=== PATIENT | male | born 1970 | race Caucasian/White ===

== ENCOUNTER → 2018-05-15 | Outpatient (CLI) | payer MEDICARE ==
--- NOTE | 2018-05-15 11:13 | KCIC ---
EXAMINATION: Magnetic resonance imaging (MRI) of the lumbar spine without contrast 05/15/2018 9:30 AM HISTORY: Lumbar radiculopathy with new onset right leg pain and numbness. TECHNIQUE: Multiplanar multi-weighted MRI of the lumbar spine was performed without intravenous contrast using the standard lumbar spine protocol. Contrast information: None administered. COMPARISON: Lumbar spine radiograph April 28, 2018 FINDINGS: There is minimal anterolisthesis of L5 on S1. There is congenital narrowing of the spinal canal secondary to shortened pedicles. There is a osseous hemangioma involving the posterior superior L2 vertebral body. Schmorl's nodes are identified involving the superior and inferior endplates of L2 and L3. Superior endplate Schmorl's nodes are identified at L4-L5. Modic type II endplate degenerative changes are identified anteriorly with mild anterior marginal osteophytosis at T11-T12 and T12-L1. There are no compression fractures. The conus medullaris terminates at the level of L1. The distal spinal cord signal intensity is normal. There is mild to moderate disc height loss at L2-L3, L3-L4, L4-L5 and L5-S1 with disc desiccation. Annular fissures are identified at L3-L4 and L4-L5. Limited views of the abdomen and pelvis show no soft tissue abnormality. The aorta is normal. L1-L2: The disc is normal in configuration. There is mild facet arthropathy. There is no neuroforaminal stenosis. There is no spinal canal stenosis. L2-L3: There is a disc bulge with central disc extrusion. There is moderate facet arthropathy. There is mild bilateral neuroforaminal stenosis. There is mild spinal canal stenosis. L3-L4: There is a circumferential disc bulge with a right central disc extrusion extending inferiorly along the posterior margin of L4. There is moderate facet arthropathy with ligamentum flavum infolding. There is moderate bilateral neuroforaminal stenosis. There is moderate spinal canal stenosis. There is severe stenosis of the right lateral recess which may affect the right L4 nerve. L4-L5: There is a central disc protrusion with superimposed disc bulge. There is moderate facet arthropathy ligamentum flavum infolding. There is moderate to severe bilateral neuroforaminal stenosis. There is mild to moderate spinal canal stenosis. L5-S1: There is a moderate circumferential disc bulge with central disc protrusion. There is moderate facet arthropathy. There is moderate left and mild right neuroforaminal stenosis. There is no spinal canal stenosis. IMPRESSION: Moderate degenerative changes of the lumbar spine as described in detail above. Findings are most significant at L3-L4 with a right central disc extrusion and moderate facet arthropathy with ligamentum flavum infolding resulting in moderate bilateral neuroforaminal stenosis, moderate spinal canal stenosis and severe right lateral recess stenosis. Electronically signed by: Cathy Muniz MD (05/15/2018 11:10 AM) [id number]
== END | disposition home or self-care (01) ==
LOC: KCIC MRI 09:20
PROVIDERS: ATTEND Nurse Practitioner Gerontology
DX: M48.061 Spinal stenosis, lumbar region without neurogenic claudication (principal); M48.07 Spinal stenosis, lumbosacral region; M12.88 Other specific arthropathies, not elsewhere classified, other specified site; M47.896 Other spondylosis, lumbar region; M51.26 Other intervertebral disc displacement, lumbar region
CPT/HCPCS: 72148